=== PATIENT | male | born 1955 | race Caucasian/White ===

== ENCOUNTER 2016-12-24 12:45 | Emergency (ER) | payer MEDICAID ==
--- NOTE | 2016-12-24 14:00 | EDPHY ---
H & P Stated Complaint: Scrape to RLE x 1 wk;noted pus today when he changed dressing Time Seen by Provider: 12/24/16 13:45 HPI/ROS: CHIEF COMPLAINT: Leg abrasion HISTORY OF PRESENT ILLNESS: The patient is a 61 year old male presenting with an abrasion to his right calf. The patient scraped the medial aspect of his right calf on a rock about 1 week ago. He kept a dressing on it and washed it with soap and water. He came to the emergency department today because he was concerned about septicemia. He denies fever. REVIEW OF SYSTEMS: Aside from elements discussed in the HPI, a comprehensive 10-point review of systems was reviewed and is negative. PAST MEDICAL HISTORY: Asthma, Hernia repair, Knee surgery, Jaw surgery SOCIAL HISTORY: Quit smoking 1 month ago. VITAL SIGNS: Reviewed by me GENERAL: Somewhat disheveled. Alert, oriented. EXTREMITIES: 8cm x 4cm superficial abrasion on medial right calf. Slt surrounding erythema. No abscess, no lymphangitic spread, no swelling, no purulance. No calf tenderness or swellling. Portions of this note were transcribed by a biomedical analytical scientist. I personally performed a history, physical exam, medical decision making, and confirmed accuracy of information the transcribed note. - Personal History Current Tetanus Diphtheria and Acellular Pertussis (TDAP): Yes Tetanus Vaccine Date: 2013 - Medical/Surgical History Hx Asthma: Yes Hx Chronic Respiratory Disease: No Hx Diabetes: No Hx Cardiac Disease: No Hx Renal Disease: No Hx Cirrhosis: No Hx Alcoholism: No Hx HIV/AIDS: No Hx Splenectomy or Spleen Trauma: No Other PMH: bilat hernia repair, knee surgery, jaw surgery, asthma - Social History Smoking Status: Former smoker Constitutional: Initial Vital Signs Temperature (C) 36.6 C 12/24/16 12:48 Heart Rate 76 12/24/16 12:48 Respiratory Rate 20 12/24/16 12:48 Blood Pressure 162/97 H 12/24/16 12:48 O2 Sat (%) 96 12/24/16 12:48 O2 Delivery Mode Room Air Allergies/Adverse Reactions: acetaminophen [From Chlor-Trimeton] Allergy (Verified 12/24/16 12:47) chlorpheniramine [From Chlor-Trimeton] Allergy (Verified 12/24/16 12:47) chlorpheniramine maleate [From Chlor-Trimeton] Allergy (Verified 12/24/16 12:47) oxycodone [Oxycodone] Allergy (Verified 12/24/16 12:47) phenylpropanolamine HCl [From Chlor-Trimeton] Allergy (Verified 12/24/16 12:47) pseudoephedrine HCl [From Actifed] Allergy (Verified 12/24/16 12:47) triprolidine HCl [From Actifed] Allergy (Verified 12/24/16 12:47) parafin Allergy (Uncoded 08/03/12 21:08) Home Medications: Medication Instructions Recorded Cephalexin [Keflex (RX)] 500 mg PO QID 7 Days 12/24/16 Medical Decision Making ED Course/Re-evaluation: Erythema marked on leg. Placed on Keflex. Mepilex dressing placed. Reassure patient doubt septicemia. Return for recheck if needed. Differential Diagnosis: Diff dx considered included cellulitis, abscess, deep space abscess, lymphangitis, sepsis, MRSA. Departure - Departure Disposition: Home, Routine, Self-Care Clinical Impression: Cellulitis of lower extremity Qualifiers: Laterality: right Qualified Code(s): L03.115 - Cellulitis of right lower limb Condition: Good Instructions: Cellulitis (ED) Additional Instructions: 1. Keep the dressing on for the next 5 days. 2. Take full course of antibiotics. 3. Continue to monitor the leg. Return to the Emergency department if you develop fever or if you notice an increase in redness. Referrals: [facility],. [Clinic] - As per Instructions Prescriptions: Cephalexin [Keflex (RX)] 500 mg PO QID 7 Days Report Scribed for: Jovanna Buckley Report Scribed by: Fawn Mayorga Date of Report: 12/24/16 Time of Report: 14:00
[2016-12-24 14:36] VITALS: BP 142/90; PULSE 75; RESP 16; TEMP 98.2; O2SAT 97
== END 2016-12-24 14:40 | disposition home or self-care (01) ==
DX: L03.115 Cellulitis of right lower limb (principal); J45.909 Unspecified asthma, uncomplicated; Z87.891 Personal history of nicotine dependence; W22.8XXA Striking against or struck by other objects, initial encounter

== ENCOUNTER → 2017-01-29 | Outpatient (CLI) | payer MEDICAID | LOC: FIMAGING 18:51 | PROVIDERS: ATTEND Registered Nurse | DX: M54.2 Cervicalgia (principal); M43.02 Spondylolysis, cervical region ==

== ENCOUNTER 2017-05-05 01:34 | Emergency (ER) | payer MEDICAID ==
[2017-05-05 01:40] VITALS: PULSE 57; RESP 16; TEMP 98.6; O2SAT 93
[2017-05-05 01:41] VITALS: BP 137/83
--- NOTE | 2017-05-05 01:46 | EDPHY ---
H & P Stated Complaint: spider bite, dizzy/nausea Time Seen by Provider: 05/05/17 01:43 HPI/ROS: Chief Complaint: Spider bite right forearm HPI: 61-year-old male sustained some sort of bite to his right forearm 3 days ago. He thinks that may been a spider. There is initially a blister over. Did put toothpaste on to prevent infection. Has not had any spreading redness. Today's had some mild nausea. No fevers or chills. No discharge from the wound. No shortness of breath. No tight chest or arm aching. ROS: 10 point Review of Systems is negative except as noted in the HPI. PMH: Asthma Social History: Positive smoking Family History: [non-contributory] Physical Exam: General: Awake, alert, no acute distress Right arm. There is a small lesion in his right forearm possibly consistent with an insect bite approximately 3 x 2 mm. There is no surrounding erythema. There is no fluctuance. Is nontender. There is no discharge from the wound. He has full flexion extension strength of his arm without any discomfort. He has intact in the radial, median and ulnar nerve distribution. Capillary refills less than 3 seconds. Skin: No rash - Personal History Current Tetanus/Diphtheria Vaccine: Yes Tetanus Vaccine Date: 2013 - Medical/Surgical History Hx Asthma: Yes Hx Chronic Respiratory Disease: No Hx Diabetes: No Hx Cardiac Disease: No Hx Renal Disease: No Hx Cirrhosis: No Hx Alcoholism: No Hx HIV/AIDS: No Hx Splenectomy or Spleen Trauma: No Other PMH: PSHx: bilat hernia repair, knee surgery, jaw surgery. PMHx: asthma - Social History Smoking Status: Former smoker Constitutional: Initial Vital Signs Temperature (C) 37 C 05/05/17 01:38 Heart Rate 57 L 05/05/17 01:38 Respiratory Rate 16 05/05/17 01:38 Blood Pressure 137/83 H 05/05/17 01:38 O2 Sat (%) 93 05/05/17 01:38 O2 Delivery Mode Room Air Allergies/Adverse Reactions: acetaminophen [From Chlor-Trimeton] Allergy (Verified 12/24/16 12:47) chlorpheniramine [From Chlor-Trimeton] Allergy (Verified 12/24/16 12:47) chlorpheniramine maleate [From Chlor-Trimeton] Allergy (Verified 12/24/16 12:47) diphenhydramine [From Benadryl] Allergy (Verified 05/05/17 01:38) oxycodone [Oxycodone] Allergy (Verified 12/24/16 12:47) phenylpropanolamine HCl [From Chlor-Trimeton] Allergy (Verified 12/24/16 12:47) pseudoephedrine HCl [From Actifed] Allergy (Verified 12/24/16 12:47) triprolidine HCl [From Actifed] Allergy (Verified 12/24/16 12:47) parafin Allergy (Uncoded 08/03/12 21:08) Home Medications: Medication Instructions Recorded Cephalexin [Keflex (RX)] 500 mg PO QID 7 Days 12/24/16 Medical Decision Making ED Course/Re-evaluation: Patient has a noninfected insect bite his right forearm. He has been reassured. Patient will be discharged with follow up with [facility] as needed. Departure - Departure Disposition: Home, Routine, Self-Care Clinical Impression: Insect bite Condition: Good Instructions: Insect Bite or Sting (ED) Additional Instructions: Return to the emergency depart for increasing redness, fever, worsening pain, or any other concerns. Referrals: [facility],. [Clinic] - As per Instructions
== END 2017-05-05 02:08 | disposition home or self-care (01) ==
DX: S50.861A Insect bite (nonvenomous) of right forearm, initial encounter (principal); J45.909 Unspecified asthma, uncomplicated; Z87.891 Personal history of nicotine dependence; W57.XXXA Bitten or stung by nonvenomous insect and other nonvenomous arthropods, initial encounter

== ENCOUNTER 2017-05-06 15:38 | Emergency (ER) | payer MEDICAID ==
[2017-05-06 15:43] VITALS: BP 125/90; PULSE 81; RESP 18; TEMP 98.2; O2SAT 95
--- NOTE | 2017-05-06 16:20 | EDPHY ---
H & P Stated Complaint: rabies exposure HPI/ROS: CHIEF COMPLAINT: Possible rabies exposure HISTORY OF PRESENT ILLNESS: Patient complains of possible rabies exposure 2 days ago. He says he was eating chips out of a bag that he saw raccoon knee out of. He says he was here 2 days ago for this but he was actually here yesterday. He says he informed the physician of this but there is no documentation of this. He says he is concern as he had had dental work the day before and then ate a chip that he was certain had saliva on it from a raccoon. He says now he is feeling some irritation and soreness in the mouth and is certain that he was exposed to rabies. No fever or chills. No modifying factors. REVIEW OF SYSTEMS: Ten systems reviewed and are negative unless otherwise noted in the HPI PAST MEDICAL HISTORY: Reviewed FAMILY HISTORY: Noncontributory EXAMINATION General Appearance: Alert, no distress Head: normocephalic, atraumatic Eyes: Pupils equal and round, no conjunctival pallor or injection ENT, Mouth: No trismus. Mucous membranes moist. There is mild aphthous ulceration at the base of the right lower teeth, teeth number 3 through 5. No palpable abscess. No lesions. Airway widely patent Neck: Normal inspection, supple, non-tender Respiratory: No retractions or distress. Cardiovascular: Regular rate. Pulses intact distally and symmetrically Neurological: GCS 15. A&O, nonfocal, normal gait. No tremor. Strength symmetric in all 4 limbs Skin: Warm and dry, no rash. No petechiae purpura Extremities: Nontender, no pedal edema Psychiatric: Mood and affect normal DIFFERENTIAL DIAGNOSES: Including but not limited to rabies exposure, saliva exposure, aphthous ulceration, ulcer, abscess, dentalgia, dental pain MDM: 4:15 p.m. Patient reports a possibility of rabies exposure. I do not appreciate any acute need for post exposure prophylaxis. There is aphthous ulceration to the mucosa of the right lower teeth. No palpable abscess. No indication for incision and/or drainage. Patient is adamant that he would like to be treated for this with rabies vaccination. I informed him that I will consult infectious disease. 4:25 p.m. I have discussed the case with the on-call infectious disease physician Dr. Jethro Abernathy. I informed him of the patient's history and physical exam. He informed me that there is no indication for post exposure prophylaxis based on this. I informed the patient of this. I will treat the patient for aphthous ulcer over the right side of the mouth. He will follow up with primary care physician at [facility]. Also return to his dentist for the dental pain associated with his recent feelings. SUPERVISION: This patient was independently evaluated without direct examination by the attending physician. Case was discussed with attending physician. Source: Patient Exam Limitations: No limitations - Personal History Current Tetanus/Diphtheria Vaccine: Yes Tetanus Vaccine Date: 2013 - Medical/Surgical History Hx Asthma: Yes Hx Chronic Respiratory Disease: No Hx Diabetes: No Hx Cardiac Disease: No Hx Renal Disease: No Hx Cirrhosis: No Hx Alcoholism: No Hx HIV/AIDS: No Hx Splenectomy or Spleen Trauma: No Other PMH: PSHx: bilat hernia repair, knee surgery, jaw surgery. PMHx: asthma - Social History Smoking Status: Former smoker Constitutional: Initial Vital Signs Temperature (C) 98.2 F 05/06/17 15:41 Heart Rate 81 05/06/17 15:41 Respiratory Rate 18 05/06/17 15:41 Blood Pressure 125/90 H 05/06/17 15:41 O2 Sat (%) 95 05/06/17 15:41 O2 Delivery Mode Room Air Allergies/Adverse Reactions: acetaminophen [From Chlor-Trimeton] Allergy (Verified 12/24/16 12:47) chlorpheniramine [From Chlor-Trimeton] Allergy (Verified 12/24/16 12:47) chlorpheniramine maleate [From Chlor-Trimeton] Allergy (Verified 12/24/16 12:47) diphenhydramine [From Benadryl] Allergy (Verified 05/05/17 01:38) oxycodone [Oxycodone] Allergy (Verified 12/24/16 12:47) phenylpropanolamine HCl [From Chlor-Trimeton] Allergy (Verified 12/24/16 12:47) pseudoephedrine HCl [From Actifed] Allergy (Verified 12/24/16 12:47) triprolidine HCl [From Actifed] Allergy (Verified 12/24/16 12:47) parafin Allergy (Uncoded 08/03/12 21:08) Home Medications: Medication Instructions Recorded Lidocaine 2% Viscous 10 ml MM TID PRN #100 ml 05/06/17 Departure - Departure Disposition: Home, Routine, Self-Care Clinical Impression: Aphthous ulcer of mouth Condition: Good Instructions: Gingivostomatitis (ED) Additional Instructions: 1. Prescription as needed 2. Follow up with dentist 3. Follow up with [facility] Referrals: NONE *PRIMARY CARE P,. [Primary Care Provider] - As per Instructions [facility],. [Clinic] - As per Instructions Ru Kan MD [Medical Doctor] - As per Instructions [facility] (ED,. [Edm Groups for Call Sched] - As per Instructions Prescriptions: Lidocaine 2% Viscous 10 ml MM TID PRN #100 ml PRN Reason: Pain, Mild
== END 2017-05-06 16:30 | disposition home or self-care (01) ==
DX: K12.0 Recurrent oral aphthae (principal); J45.909 Unspecified asthma, uncomplicated; Z87.891 Personal history of nicotine dependence

== ENCOUNTER 2018-08-21 15:11 | Emergency (ER) | payer MEDICAID ==
[2018-08-21 15:43] LABS: PLATELET COUNT 219 10^3/uL (150-400)
[2018-08-21] MEDS ORDERED: NS 1,000 ML IV ONE (15:57)
--- NOTE | 2018-08-21 16:04 | EDPHY ---
H & P <DilciaChanell S - Last Filed: 08/21/18 16:30> Stated Complaint: N/V - Personal History Tetanus Vaccine Date: 2013 - Medical/Surgical History Hx Asthma: Yes Hx Chronic Respiratory Disease: No Hx Diabetes: No Hx Cardiac Disease: No Hx Renal Disease: No Hx Cirrhosis: No Hx Alcoholism: No Hx HIV/AIDS: No Hx Splenectomy or Spleen Trauma: No Other PMH: PSHx: bilat hernia repair, knee surgery, jaw surgery. PMHx: asthma - Social History Smoking Status: Former smoker <Prashant De Leon N - Last Filed: 08/21/18 17:40> <Tobin Davies E - Last Filed: 08/21/18 19:15> Time Seen by Provider: 08/21/18 15:18 HPI/ROS: Clinical Impression: Dizziness nausea and vomiting Assessment/Plan: 62-year-old homeless male presents to the emergency department by EMS after reportedly becoming dizzy over the last 3 days associated with intermittent nausea and vomiting but today was unable to walk due to dizziness. Patient is alert, oriented with no focal neurological deficits in the ED. He has mild rotary nystagmus. CT scan negative for acute intracranial hemorrhage or abnormality. No reports of neck pain or recent neck injury. Labs reassuring with no renal insufficiency, electrolyte imbalance, leukocytosis. Patient received IV fluids and meclizine but reported inability to road test. He then received Valium. Case signed out to Dr. Davies at 5:40 p.m. Pending re- evaluation and road test. Patient stable at time of sign-out. Differential Dx: Dizziness including but not limited to peripheral and central causes of vertigo , orthostatic causes including dehydration, and blood loss. ED Procedures: ED Course: 1605: EKG and case reviewed with Dr. Ha 1623: Spoke to Dr. Acevedo with Radiology, no acute findings on CT. Meclizine ordered 1741: Patient signed out to Dr. Davies Chief Complaint: Dizziness HPI: 62-year-old homeless male presents to the emergency department with 3 days of dizziness associated with nausea and vomiting. Patient reports it is his dizziness that causes him to be nauseous and throw up. Today he states his dizziness was more severe and left him unable to walk. Any kind of movement makes the dizziness worse which he describes as a spinning sensation. No recent illness and no associated headache, vision or hearing changes. No upper or lower extremity weakness or numbness. No chest pain. He has chronic shortness of breath due to asthma. He does not take regular prescription medications and has not had any new medications. He denies illicit drugs and alcohol. He has been trying to stay well hydrated and did have a meal last night. He is sleeping outside side. PMH: Asthma Pertinent Past Surgical History: Noncontributory Family History: Did not obtain Social History: Nonsmoker, no ETOH, homeless ROS: All other systems negative Constitutional: No fever, no chills, appetite change. Eyes: No discharge, vision change ENT: No sore throat, congestion, ear pain. Cardiovascular: No chest pain, no palpitations. Respiratory: No cough, no shortness of breath. Gastrointestinal: No abdominal pain, no vomiting, diarrhea. Genitourinary: No hematuria, dysuria, flank pain, pelvic pain Musculoskeletal: No back pain, joint swelling, joint pain, myalgias. Skin: No rashes, color change. Neurological: No headache, weakness. Physical Exam: General Appearance: Alert, oriented, appropriate, cooperative, NAD, well hydrated, non-toxic appearing, VSS, intermittent tachycardia no hypoxia. HEENT: TMs are clear bilaterally no perforation or FB, no injection, no evidence of serous or mucopurulent otitis. Oropharynx clear is no erythema or exudates, no tonsillar hypertrophy or asymmetry. Dentition without abnormality. Eyes: PERRLA, no acute vision change, mild rotary nystagmus noted at rest, swelling, discharge, pain or photosensitivity. Conjunctiva pink, no pallor or injection Neck: Supple, nontender, no lymphadenopathy, no midline pain, FROM, no meningismus. Respiratory: There are no retractions, lungs are clear to auscultation. Cardiac: Regular rate and rhythm, no murmurs or gallops. Gastrointestinal: Abdomen is soft, nontender, bowel sounds normal, no masses/ hernia, no rigidity, guarding or focal peritoneal findings. Neurological: Alert and oriented x 3, CN 2-12 grossly intact, no limb ataxia, DTR's intact, normal sensation and strength Skin: Warm, dry, no rashes, no nodules on palpation. Musculoskeletal: Extremities are symmetrical, full range of motion, no tenderness, deformity, swelling, or erythema. Psychiatric: Patient is oriented X 3, there is no agitation. MDM: Patient was seen independently by established practice protocols. Secondary supervising physician at time of evaluation was Dr. Ha. Diagnosis: Dizziness, nausea, vomiting. New, requires workup Summary: See assessment and plan Clinical lab tests: ordered / reviewed. Independent visualization of images, tracing, or specimens: Yes. Discussed patient with another provider: Dr. Ha, Dr. Davies Risk of comlications, morbidity, mortality: Presenting problem moderate Diagnostic procedures moderate Management Options moderate Patient Progress: Stable at time of sign-out. (Prashant De Leon) Constitutional: Initial Vital Signs Temperature (C) 36.7 C 08/21/18 15:14 Heart Rate 95 08/21/18 15:14 Respiratory Rate 18 08/21/18 15:14 Blood Pressure 178/92 H 08/21/18 15:14 O2 Sat (%) 96 08/21/18 15:14 O2 Delivery Mode Room Air Allergies/Adverse Reactions: acetaminophen [From Chlor-Trimeton] Allergy (Verified 08/21/18 15:17) chlorpheniramine [From Chlor-Trimeton] Allergy (Verified 08/21/18 15:17) chlorpheniramine maleate [From Chlor-Trimeton] Allergy (Verified 08/21/18 15:17) diphenhydramine [From Benadryl] Allergy (Verified 08/21/18 15:17) oxycodone [Oxycodone] Allergy (Verified 08/21/18 15:17) phenylpropanolamine HCl [From Chlor-Trimeton] Allergy (Verified 08/21/18 15:17) pseudoephedrine HCl [From Actifed] Allergy (Verified 08/21/18 15:17) triprolidine HCl [From Actifed] Allergy (Verified 08/21/18 15:17) parafin Allergy (Uncoded 08/21/18 15:17) Home Medications: Medication Instructions Recorded Lidocaine 2% Viscous 10 ml MM TID PRN #100 ml 05/06/17 Diazepam [Valium 5 MG (*)] 5 mg PO TID PRN #15 tab 08/21/18 Ondansetron Odt [Zofran Odt 4 mg 4 mg PO Q4 PRN #10 tab 08/21/18 (RX)] Medical Decision Making <Chanell Ha - Last Filed: 08/21/18 16:30> <Prashant De Leon - Last Filed: 08/21/18 17:40> - Diagnostics Imaging: Discussed imaging studies w/ proteomics scientist Radiologist <Tobin Davies - Last Filed: 08/21/18 19:15> - Diagnostics Imaging Results: Imaging Impressions Head CT 08/21/18 15:49 Impression: 1. No acute intracranial process. 2. Dental disease with periapical cavities. 3. Paranasal sinus disease. Findings and recommendations discussed with Prashant De Leon at 1620 hour, . ED Course/Re-evaluation: This patient was seen and examined by me. He presents with vertigo. Neurologic exam is normal and there are no concerning signs or symptoms suggestive of a central etiology for vertigo. Meclizine 25 mg orally given. ( Chanell Ha) 6:30 p.m. patient's vertigo is improving. No focal deficits. He is able to ambulate. He is asking about residential. We will try to discharge him time to get to the residential. He is ambulating without difficulty. He is not happy to leave because he states he does not have a place to go. (Tobin Davies) - Data Points Laboratory Results: Laboratory Results 08/21/18 15:16 08/21/18 15:16 08/21/18 08/21/18 08/21/18 15:47 15:16 15:16 WBC 8.57 10^3/uL 10^3/uL (3.80-9.50) RBC 4.99 10^6/uL 10^6/uL (4.40-6.38) Hgb 16.4 g/dL g/dL (13.7-17.5) Hct 47.5 % % (40.0-51.0) MCV 95.2 fL fL (81.5-99.8) MCH 32.9 pg pg (27.9-34.1) MCHC 34.5 g/dL g/dL (32.4-36.7) RDW 12.2 % % (11.5-15.2) Plt Count 219 10^3/uL 10^3/uL (150-400) MPV 9.7 fL fL (8.7-11.7) Neut % (Auto) 63.2 % % (39.3-74.2) Lymph % (Auto) 25.0 % % (15.0-45.0) [place] % (Auto) 8.3 % % (4.5-13.0) Eos % (Auto) 2.8 % % (0.6-7.6) Baso % (Auto) 0.5 % % (0.3-1.7) Nucleat RBC Rel Count 0.0 % % (0.0-0.2) Absolute Neuts (auto) 5.42 10^3/uL 10^3/uL (1.70-6.50) Absolute Lymphs (auto) 2.14 10^3/uL 10^3/uL (1.00-3.00) Absolute Monos (auto) 0.71 10^3/uL 10^3/uL (0.30-0.80) Absolute Eos (auto) 0.24 10^3/uL 10^3/uL (0.03-0.40) Absolute Basos (auto) 0.04 10^3/uL 10^3/uL (0.02-0.10) Absolute Nucleated RBC 0.00 10^3/uL 10^3/uL (0-0.01) Immature Gran % 0.2 % % (0.0-1.1) Immature Gran # 0.02 10^3/uL 10^3/uL (0.00-0.10) Sodium 138 mEq/L mEq/L (135-145) Potassium 4.3 mEq/L mEq/L (3.3-5.0) Chloride 100 mEq/L mEq/L (97-110) Carbon Dioxide 25 mEq/l mEq/l (22-31) Anion Gap 13 mEq/L mEq/L (6-14) BUN 20 mg/dL mg/dL (7-23) Creatinine 1.0 mg/dL mg/dL (0.7-1.3) Estimated GFR > 60 Glucose 111 mg/dL H mg/dL (70-100) Calcium 10.2 mg/dL mg/dL (8.5-10.4) POC Troponin I 0.00 ng/mL ng/mL (0.00-0.08) Medications Given: Discontinued Medications Diazepam (Valium) 2 mg PO EDNOW ONE Stop: 08/21/18 17:19 Last Admin: 08/21/18 17:33 Dose: 2 mg Sodium Chloride (Ns) 1,000 mls @ 0 mls/hr IV EDNOW ONE; Wide Open PRN Reason: Protocol Stop: 08/21/18 15:58 Last Admin: 08/21/18 16:22 Dose: 1,000 mls Meclizine HCl (Meclizine Hcl) 25 mg PO ONCE ONE Stop: 08/21/18 16:23 Last Admin: 08/21/18 16:23 Dose: 25 mg Point of Care Test Results: Chemistry 08/21/18 15:47 POC Troponin I 0.00 ng/mL ng/mL (0.00-0.08) Departure <Chanell Ha S - Last Filed: 08/21/18 16:30> <Prashant De Leon - Last Filed: 08/21/18 17:40> <Tobin Davies - Last Filed: 08/21/18 19:15> - Departure Disposition: Home, Routine, Self-Care Clinical Impression: Vertigo, benign positional Qualifiers: Laterality: unspecified laterality Qualified Code(s): H81.10 - Benign paroxysmal vertigo, unspecified ear Condition: Fair Instructions: Benign Paroxysmal Positional Vertigo (ED) Referrals: Patient,NotPresent [Unknown] - As per Instructions Prescriptions: Diazepam [Valium 5 MG (*)] 5 mg PO TID PRN #15 tab PRN Reason: Vertigo Ondansetron Odt [Zofran Odt 4 mg (RX)] 4 mg PO Q4 PRN #10 tab PRN Reason: Nausea & Vomiting
[2018-08-21] MEDS ORDERED: MECLIZINE HCL 25 MG TAB ONE (16:21)
[2018-08-21] MEDS ORDERED: MECLIZINE HCL 25 MG TAB PO ONE (16:22)
--- NOTE | 2018-08-21 16:58 | CPEKG ---
Test Reason : OPEN Blood Pressure : / mmHG Vent. Rate : 048 BPM Atrial Rate : 048 BPM P-R Int : 190 ms QRS Dur : 109 ms QT Int : 446 ms P-R-T Axes : 079 056 032 degrees QTc Int : 399 ms Sinus bradycardia Confirmed by Chanell Ha ([id number]) on 08/21/2018 4:58:11 PM Referred By: Confirmed By:Chanell Ha
[2018-08-21 17:10] VITALS: BP 156/63
[2018-08-21] MEDS ORDERED: DIAZEPAM 2 MG TAB PO ONE (17:18)
[2018-08-21] MEDS ORDERED: DIAZEPAM 5 MG TAB ONE (17:32)
== END 2018-08-21 19:02 | disposition home or self-care (01) ==
LOC: EDUNIT#
DX: H81.10 Benign paroxysmal vertigo, unspecified ear (principal); R11.2 Nausea with vomiting, unspecified; E86.9 Volume depletion, unspecified; K02.9 Dental caries, unspecified; J45.909 Unspecified asthma, uncomplicated; Z87.891 Personal history of nicotine dependence; Z59.0 Homelessness
CPT/HCPCS: 84484-PO